=== PATIENT | male | born 1955 | race Caucasian/White ===

== ENCOUNTER 2017-03-16 05:37 | Day surgery (SDC) | payer OTHER ==
[2017-03-16] VITALS (11 sets, daily range): BP systolic 90–158; BP diastolic 44–81; PULSE 58–81; RESP 11–25; Ht 179.1 cm; Wt 95.2 kg
[~2017-03-16] VITALS: Ht 179.1 cm; Wt 95.2 kg
[2017-03-16] MEDS ORDERED: PROPOFOL 20 ML ONE (07:09)
[2017-03-16] MEDS ORDERED: NEOSTIGMINE 3 MG/3 ML SYRINGE ONE ×2 (07:09→08:19)
[2017-03-16] MEDS ORDERED: LIDOCAINE 2% (SDV) 5 ML INJ ONE (07:09)
[2017-03-16] MEDS ORDERED: ROCURONIUM 50 MG INJ ONE ×2 (07:09→08:19)
[2017-03-16] MEDS ORDERED: GLYCOPYRROLATE 1 MG INJ ONE ×3 (07:09→08:20)
[2017-03-16] MEDS ORDERED: SUCCINYLCHOLINE CHLORIDE 100 MG/5 ML SYG IV ONE (07:09)
[2017-03-16] MEDS ORDERED: MEPERIDINE 100 MG INJ ONE (07:10)
[2017-03-16] MEDS ORDERED: SOD CHLORIDE 0.9% 1,000 ML IV SCH (07:12)
--- NOTE | 2017-03-16 07:17 | HPN ---
Date/Time of Note Date/Time of Note DATE: 03/16/17 TIME: 07:17 Interval H&P Admission Note Pt. seen H&P reviewed: No system changes SONALI CRAVEN MD March 16, 2017 07:17
[2017-03-16] MEDS ORDERED: HYDR12.58 PO (07:20)
[2017-03-16] MEDS ORDERED: [UNRECOGNIZED DRUG - CODE] PO (07:20)
[2017-03-16] MEDS ORDERED: OMEP40CA6 PO (07:20)
[2017-03-16] MEDS ORDERED: LEVEM SC ×2 (07:20→07:24)
[2017-03-16] MEDS ORDERED: LEVO125T75 PO (07:20)
[2017-03-16] MEDS ORDERED: CEFAZOLIN 1 GM INJ ONE (07:22)
[2017-03-16] MEDS ORDERED: ONDANSETRON 4 MG INJ ONE (07:22)
[2017-03-16] MEDS ORDERED: METOCLOPRAMIDE 10 MG INJ ONE (07:22)
[2017-03-16] MEDS ORDERED: INSU100C SQ (07:24)
[2017-03-16] MEDS ORDERED: AMLO1CAP10 PO (07:24)
[2017-03-16] MEDS ORDERED: ROSU40TA35 PO (07:24)
[2017-03-16] MEDS ORDERED: OXYCODONE/ACETAMINOPHEN (5/325) TAB PO PRN ×2 (07:30)
[2017-03-16] MEDS ORDERED: ONDANSETRON 4 MG INJ IV PRN ×2 (07:30→08:00)
[2017-03-16] MEDS ORDERED: morphine 2 MG INJ IV PRN (07:30)
[2017-03-16] MEDS ORDERED: HYDROmorphONE (0.2 MG/ML) 10ML SYG IV PRN ×2 (08:00)
[2017-03-16] MEDS ORDERED: hydrALAzine 20 MG INJ IV PRN (08:00)
[2017-03-16] MEDS ORDERED: FENTAnyl 50 MCG/ML VIAL IV PRN ×2 (08:00)
[2017-03-16] MEDS ORDERED: DIPHENHYDRAMINE 50 MG INJ IV PRN (08:00)
[2017-03-16] MEDS ORDERED: METOCLOPRAMIDE 10 MG INJ IV PRN (08:00)
[2017-03-16] MEDS ORDERED: morphine (1 MG/ML) 10ML SYRINGE IV PRN ×2 (08:00)
[2017-03-16] MEDS ORDERED: LABETALOL HCL 20MG INJ IV PRN (08:00)
[2017-03-16] MEDS ORDERED: MEPERIDINE 25 MG INJ IV PRN (08:00)
[2017-03-16] MEDS ORDERED: MIDAZOLAM 1 MG/ML 2 ML INJ IV PRN (08:00)
[2017-03-16] MEDS ORDERED: EPHEDrine SULFATE 50 MG/5 ML SYG IV PRN (08:00)
[2017-03-16] MEDS ORDERED: ROPIVACAINE 0.5 % 30 ML VIAL ONE (08:24)
--- NOTE | 2017-03-16 10:13 | OPR ---
DATE OF OPERATION: 03/16/2017 PREOPERATIVE DIAGNOSIS: Tear of medial meniscus and lateral meniscus, right knee. POSTOPERATIVE DIAGNOSES: 1. Chondrocalcinosis of the right knee with synovitis. 2. Posterior horn tear of the medial meniscus with an oblique and horizontal cleavage component com plex in nature. 3. Degenerative tear lateral meniscus. 4. Chondromalacia grade II of the medial, lateral and patellofemoral compartments. OPERATION PERFORMED: 1. Arthroscopy, right knee. 2. Partial medial meniscectomy. 3. Partial lateral meniscectomy. 4. Chondroplasty patellofemoral joint. SURGEON: Sonali Craven MD JOINTER MACHINE OPERATOR: James Tang MD ANESTHESIA: General. TOURNIQUET TIME: Zero. DESCRIPTION OF PROCEDURE: The patient taken to the operating room and placed in supine position. S atisfactory general anesthesia was administered, 2 grams Ancef given intravenously. The right knee was prepped and draped in the usual manner. Exam under anesthesia revealed full range of motion, AP drawer and Rita, 1+, pivot shift was negative. No varus-valgus instability. Standard arthroscopic portals were used. Undersurface of patella had some grade II, slight grade II I chondromalacia. Trochlea had minimal chondromalacia. Medial synovial shelf was normal. There wa s a lot of synovitis throughout the knee. Popliteus was intact. Lateral compartment was entered. T here was some grade II chondromalacia lateral compartment, degenerative tear of the lateral meniscus from the anterior horn to the posterior horn with some large calcific deposit consistent with chond rocalcinosis. Anterior and posterior cruciates were intact origins and insertion. There was a very thickened ligamentum mucosum. The medial compartment was entered, some grade II chondromalacia med ial compartment from the mid zone of the posterior horn with a complex tear with a flap and a horizo ntal cleavage component. A probe was inserted through the medial portal. The tear was palpated. Us ing curved and straight baskets, the tear was saucerized from the mid zone to the posterior horn. S haver was used to smooth and contour the edges to a stable rim. All debris was removed. The menisc us was cut back almost to the rim posteriorly and then contoured to the mid zone. Chondroplasty per formed along the medial compartment. All loose debris was removed from the medial compartment. The anterior and posterior cruciates were palpated and were intact. Ligamentum mucosum was excised. B leeders were coagulated. The lateral meniscus tear was palpated using curved and straight baskets. It was saucerized from the posterior horn to the anterior horn to reasonably stable edge. Calcific deposits were removed as encountered. Chondroplasty performed along the lateral compartment. A ch ondroplasty then performed on the patellofemoral compartment. Knee was irrigated clear. Wounds wer e closed with Steri-Strips, infiltrated with 0.5% ropivacaine. Compression dressing and an ice pack were applied. Patient brought to recovery in stable condition. At the end of the procedure sponge and needle count was correct. Patient tolerated procedure well. Dictated By: SONALI CRAVEN MD RF/NTS Conf#: [id number] DID#: [id number] CC: JAMES TANG MD;*EndCC*
--- NOTE | 2017-03-16 10:20 | OPR ---
DATE OF OPERATION: ADDENDUM This is an addendum to my operative report I just dictated on the patient. The addendum should say: SCALE RECLAMATION TENDER ORTHOPEDIC SURGEON: Customer Service Consultant orthopedic surgeon was used at my request. The assistant chief nursing officer h elped with manipulating the leg, manipulating the arthroscope and also while I manipulated the knee to try to open it, the assistant chief nursing officer resected some of the meniscus. Without a skilled orthopedic surgeo n assisting me, this could not have been performed and they should be compensated appropriately. Dictated By: SONALI CRAVEN MD RF/MOSHE Conf#: [id number] DID#: [id number]
== END 2017-03-16 12:15 | disposition home or self-care (01) ==
LOC: SDS 05:37
PROVIDERS: ATTEND Orthopaedic Surgery
DX: M23.221 Derangement of posterior horn of medial meniscus due to old tear or injury, right knee (principal); M23.200 Derangement of unspecified lateral meniscus due to old tear or injury, right knee; M94.261 Chondromalacia, right knee; E11.9 Type 2 diabetes mellitus without complications; I10 Essential (primary) hypertension; E03.9 Hypothyroidism, unspecified; E78.5 Hyperlipidemia, unspecified
CPT/HCPCS: 29880; 82962; J0330; J0690; J1170; J2175; J2405; J2710; J2765; J2795; J7999